=== PATIENT | male | born 1980 | race Two or more races ===

== ENCOUNTER 2017-07-16 10:32 | Emergency (ER) | payer MEDICAID ==
[~2017-07-16] VITALS: Ht 167.6 cm; Wt 99.8 kg
[~2017-07-16 10:32] MED LIST: BENA10TA9; GLIP-115; METF-370; OMEPRAZOLE; SIMV-8
[2017-07-16 16:01] VITALS: BP 125/85
== END 2017-07-16 21:00 | disposition left against medical advice (07) ==
LOC: ER 10:32
DX: R10.13 Epigastric pain (principal); E11.9 Type 2 diabetes mellitus without complications; Z90.89 Acquired absence of other organs; Z79.899 Other long term (current) drug therapy; Z53.29 Procedure and treatment not carried out because of patient's decision for other reasons